=== PATIENT | female | born 1995 | race Caucasian/White ===

== ENCOUNTER 2017-04-20 05:41 | Outpatient (CLI) | payer BC ==
[~2017-04-20] VITALS: Ht 170.2 cm; Wt 109.0 kg
[2017-04-20 06:11] VITALS: BP 123/86
[2017-04-21] MEDS ORDERED: PREN1TAB60 PO (08:37)
== END 2017-04-20 07:01 | disposition home or self-care (01) ==
LOC: LDOP 05:41
PROVIDERS: ATTEND Obstetrics & Gynecology Gynecology
DX: O46.93 Antepartum hemorrhage, unspecified, third trimester (principal); Z3A.39 39 weeks gestation of pregnancy
CPT/HCPCS: 59025; 81001; 89060; 99211; G0463; Q0114

== ENCOUNTER 2017-04-21 08:30 | Inpatient (IN) | payer BC ==
[~2017-04-21] VITALS: Ht 170.2 cm; Wt 108.6 kg
[2017-04-21] MEDS ORDERED: OXYTOCIN 30U/ 0.9% NaCL 500ML 500 ML IV ONE (08:34)
[2017-04-21] MEDS: D5%-LACTATED RINGERS 1,000 ML IV SCH ×2 (08:34→16:34)
[2017-04-21] MEDS ORDERED: OXYTOCIN 30U/ 0.9% NaCL 500ML 500 ML IV PRN (08:34)
[2017-04-21] MEDS ORDERED: PREN1TAB60 PO (08:37)
[2017-04-21 09:00] VITALS: BP 120/74
[2017-04-21] MEDS ORDERED: ONDANSETRON 2MG/ML, 2ML IVPush PRN (09:00)
[2017-04-21] MEDS ORDERED: FENTANYL PF 100 MCG/2ML IVPush PRN (09:00)
[2017-04-21] MEDS ORDERED: PHARMACOKINETIC CONSULTATION MC ONE (09:00)
[2017-04-21] MEDS ORDERED: AMPICILLIN 2 GM in SODIUM CHLORIDE 0.9% 100 ML IVPB SCH (09:00)
[2017-04-21] MEDS ORDERED: PHARMACOKINETIC MONITORING MC PRN (09:00)
[2017-04-21] MEDS ORDERED: GENTAMICIN PER PHARMACY MC PRN (09:00)
[2017-04-21] MEDS ORDERED: GENTAMICIN 400 MG in SODIUM CHLORIDE 0.9% 100 ML IV SCH (09:00)
[2017-04-21] MEDS ORDERED: OXYTOCIN 30U/ 0.9% NaCL 500ML 500 ML ONE ×2 (09:12→22:44)
[2017-04-21] MEDS: LACTATED RINGERS 1,000 ML IV SCH ×3 (09:14→18:37)
[2017-04-21 09:22] LABS: HEMATOCRIT 41.6 % (34.6-47.8); WHITE BLOOD COUNT 11.4 x10^3/uL (3.4-10)
[2017-04-21] MEDS: AMPICILLIN 2 GM in SODIUM CHLORIDE 0.9% 50 ML IVPB SCH ×3 (09:30→21:03)
[2017-04-21] MEDS ORDERED: NEWBORN KIT ONE (10:17)
[2017-04-21] MEDS ORDERED: CLINDAMYCIN PMX 900MG/50ML 50 ML ONE ×2 (11:03→18:29)
[2017-04-21] MEDS: CLINDAMYCIN PMX 900MG/50ML 50 ML IVPB SCH ×2 (11:04→18:38)
[2017-04-21] MEDS ORDERED: FENTANYL PF 100 MCG/2ML ONE (13:29)
[2017-04-21] MEDS ORDERED: ONDANSETRON 2MG/ML, 2ML ONE (13:29)
[2017-04-21] MEDS ORDERED: BUPIVACAINE/PF 0.25% ONE (14:54)
[2017-04-21] MEDS ORDERED: FENTANYL/BUPIV./NS/PF 250 ML EPIDCONT ONE (14:55)
[2017-04-21] MEDS ORDERED: BUPIVACAINE 0.25% ONE (15:00)
[2017-04-21] MEDS ORDERED: LIDOCAINE/PF 1.5%-EPI 1:200K, 30ML ONE (15:00)
[2017-04-21] MEDS ORDERED: FENTANYL/BUPIV./NS/PF 250 ML EPIDCONT SCH (16:22)
[2017-04-21] MEDS ORDERED: LACTATED RINGERS 1,000 ML IVBOLUS PRN (16:30)
[2017-04-21] MEDS ORDERED: MISOPROSTOL 200 MCG TABLET ONE (20:14)
[2017-04-21] MEDS ORDERED: LIDOCAINE 1%, 20ML ONE (20:14)
[2017-04-21] MEDS: OXYTOCIN 30U/ 0.9% NaCL 500ML 500 ML IV SCH (22:39)
[2017-04-21] MEDS ORDERED: IBUPROFEN 600 MG TABLET ONE (22:43)
[2017-04-21] MEDS ORDERED: OXYcodone/APAP 5/325MG TABLET PO PRN ×2 (23:00)
[2017-04-21] MEDS ORDERED: MISOPROSTOL 200 MCG TABLET PR PRN (23:00)
[2017-04-21] MEDS ORDERED: ACETAMINOPHEN 325 MG TABLET PO PRN ×2 (23:00)
[2017-04-21] MEDS ORDERED: ONDANSETRON 2MG/ML, 2ML IV PRN (23:00)
[2017-04-21] MEDS ORDERED: METHYLERGONOVINE 0.2 MG/ML IM PRN (23:00)
[2017-04-21] MEDS: IBUPROFEN 600 MG TABLET PO PRN (23:02)
[2017-04-22] MEDS: LACTATED RINGERS 1,000 ML IV SCH ×3 (00:22→08:22)
[2017-04-22] MEDS: D5%-LACTATED RINGERS 1,000 ML IV SCH (00:34)
[2017-04-22 00:45] VITALS: BP 106/59
[2017-04-22 03:45] VITALS: BP 100/55
[2017-04-22 06:09] LABS: HEMATOCRIT 35.9 % (34.6-47.8); HEMOGLOBIN 12.3 g/dL (11.7-16.4); WHITE BLOOD COUNT 15.6 x10^3/uL (3.4-10)
[2017-04-22] MEDS: OXYTOCIN 30U/ 0.9% NaCL 500ML 500 ML IV SCH (08:39)
[2017-04-22 08:40] VITALS: BP 101/57
[2017-04-22] MEDS: DOCUSATE 100 MG CAPSULE PO PRN (10:07)
[2017-04-22] MEDS: PRENATAL VIT/IRON/FA 1 EACH TABLET PO SCH (10:07)
[2017-04-22 15:43] VITALS: BP 116/61
[2017-04-22 20:00] VITALS: BP 115/72
[2017-04-23] MEDS: IBUPROFEN 600 MG TABLET PO PRN ×2 (04:43→11:53)
[2017-04-23 08:15] VITALS: BP 117/72
[2017-04-23] MEDS: PRENATAL VIT/IRON/FA 1 EACH TABLET PO SCH (11:53)
[2017-04-23] MEDS: DOCUSATE 100 MG CAPSULE PO PRN (11:53)
[2017-04-23] MEDS ORDERED: OXYC-302 PO (16:27)
[2017-04-23] MEDS ORDERED: IBUP-1222 PO (16:27)
== END 2017-04-23 18:30 | disposition home or self-care (01) | DRG 775 ==
LOC: LDIP 08:30 → 2NW 04-22 00:30
PROVIDERS: ADMIT Obstetrics & Gynecology Gynecology; ATTEND Obstetrics & Gynecology Gynecology
PROC: 10E0XZZ Delivery of Products of Conception, External Approach (ICD-10-PCS; principal; 2017-04-21)
PROC: 0KQM0ZZ Repair Perineum Muscle, Open Approach (ICD-10-PCS; 2017-04-21)
PROC: 3E0R3BZ Introduction of Anesthetic Agent into Spinal Canal, Percutaneous Approach (ICD-10-PCS; 2017-04-21)
PROC: 00HU33Z Insertion of Infusion Device into Spinal Canal, Percutaneous Approach (ICD-10-PCS; 2017-04-21)
PROC: 3E0P3VZ Introduction of Hormone into Female Reproductive, Percutaneous Approach (ICD-10-PCS; 2017-04-21)
DX: O42.92 Full-term premature rupture of membranes, unspecified as to length of time between rupture and onset of labor (principal); O69.81X0 Labor and delivery complicated by cord around neck, without compression, not applicable or unspecified; O99.824 Streptococcus B carrier state complicating childbirth; O70.1 Second degree perineal laceration during delivery; O77.0 Labor and delivery complicated by meconium in amniotic fluid; Z37.0 Single live birth; Z3A.40 40 weeks gestation of pregnancy
CPT/HCPCS: 36415; 82565; 82803; 85025; 86850; 86900; J0290; J2405; J3010; J3490; J1580; J2590; J7120